=== PATIENT | male | born 1965 | race African-American/Black ===

== ENCOUNTER 2020-04-15 09:05 | Emergency (ER) | payer BC ==
[~2020-04-15] VITALS: Ht 180.3 cm; Wt 100.2 kg
[2020-04-15 09:11] VITALS: Ht 180.3 cm; Wt 100.2 kg
[2020-04-15 09:40] LABS: BASOPHIL % 0.7 % (0-2); PLATELET COUNT 214 x10^3mcL (130-400)
[2020-04-15 09:57] LABS: RED CELL DISTRIBUTION WIDTH 28.1 % (11.5-14.5)
[2020-04-15 10:15] LABS: CARBON DIOXIDE 28.4 mmol/L (21-32); CHLORIDE SERUM 102 mmol/L (98-107); CREATININE SERUM 0.9 mg/dL (0.7-1.3); GFR1 > 60 mL/min; GLUCOSE SERUM 110 mg/dL (74-106); SODIUM SERUM 137 mmol/L (136-145)
[2020-04-15 10:19] LABS: ALBUMIN 4.1 g/dL (3.4-5.0); ALKALINE PHOSPHATASE 70 U/L (46-116); ALT/SGPT 35 U/L (16-63); AST/SGOT 21 U/L (15-37); BILIRUBIN TOTAL 0.5 mg/dL (0.20-1.00); TOTAL PROTEIN, SERUM 7.4 g/dL (6.4-8.2)
[2020-04-15 11:19] VITALS: BP 136/95
== END 2020-04-15 11:19 | disposition home or self-care (01) ==
LOC: ED 09:05
PROVIDERS: Emergency Medicine
DX: R07.89 Other chest pain (principal); I10 Essential (primary) hypertension; K21.9 Gastro-esophageal reflux disease without esophagitis; Z88.2 Allergy status to sulfonamides
CPT/HCPCS: Q0092